=== PATIENT | female | born 1960 | race Caucasian/White ===

== ENCOUNTER 2018-08-01 00:39 | Outpatient (CLI) | payer OTHER, SELFPAY ==
--- NOTE | 2018-08-01 12:46 | DI.MAMMO_ITS ---
SYMPTOM/DIAGNOSIS: SCREENING, ANNUAL PHYSICAL EXAM, Z00.00 MAMMOGRAMS: Mammograms were interpreted according to the usual protocol including computer analysis with CAD system, tomosynthesis and C view imaging. The breasts are heterogeneously dense. No dominant mass or clumped microcalcification is identified in either breast. The current examination is compared with previous examinations including 08/2016 and there has been no gross interval change in appearance in comparison with the previous studies. CONCLUSION: No specific evidence of malignancy at this time. Routine screening examinations are suggested at yearly intervals due to the family history of breast carcinoma. Category 1. Breast density, category C. MQSA ASSESSMENT OF FINDINGS: Negative. Category 1. Patient will receive a letter notifying them of these results. Bi-RADS category C. The breasts are heterogeneously dense, which may obscure small masses.
== END 2018-08-01 00:59 ==
PROVIDERS: PCP Family Medicine; Visit Provider Family Medicine
DX: Z00.00 Encounter for general adult medical examination without abnormal findings (principal); Z12.31 Encounter for screening mammogram for malignant neoplasm of breast
CPT/HCPCS: 77063; 77067

== ENCOUNTER 2019-01-28 10:02 | Emergency (ER) | payer OTHER, SELFPAY ==
[2019-01-28 10:08] VITALS: BP 144/118; PULSE 104; RESP 20; TEMP 37; O2SAT 100
[2019-01-28 10:18] VITALS: BP 116/80; PULSE 91; RESP 18; O2SAT 99
--- NOTE | 2019-01-28 10:20 | W.ED.GENAD ---
Discharge Plan Disposition Patient Disposition: HOME Condition: Improving Discharge Details Chief Complaint: EyeProblem Clinical Impression: Conjunctivitis, Acute bronchitis Primary Care Provider: Prabha Dixon ED Provider: Walter Nagel Home Meds and New Rx's Prescriptions: New azithromycin 250 mg tablet See Rx Instructions .ROUTE .COMPLEX Qty: 6 RF: 0 Continued omeprazole 20 MG capsule,delayed release(DR/EC) 20 mg PO DAILY RF: 0 oxybutynin chloride 10 MG tablet extended release 24hr 15 mg PO DAILY RF: 0 Discharge Instructions Instructions: Acute Bronchitis (ED), Conjunctivitis (ED) Additional Instructions: Home to rest today. Erythromycin ophthalmic ointment 3 times daily for 5 days. No contacts while on this medication. Take azithromycin as prescribed. Small, frequent sips of fluids to maintain hydration. 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 She has had days of cough with production of green-tinged sputum and now left greater than right conjunctivitis with crusting of the lids and yellow discharge this morning. Most likely a developing acute bronchitis but with concomitant left conjunctivitis. Will treat with erythromycin ophthalmic and discussed with her systemic azithromycin to cover for atypical microorganisms. Stable and appropriate outpatient management. HPI General Mode of arrival: ambulatory. Date/Time Provider Initiated Documentation: 01/28/19 10:04. Limitations to Documentation: no limitations. Information obtained by: patient. History of Present Illness 58 year old F presents to the emergency department with the chief complaint of URI symptoms with left eye conjunctivitis, crusting of the lids, and is localized to the eyes and left. Patient started experiencing this day(s) and it has been constant. No relieving factors improve symptom(s), No exacerbating factors reported . Patient notes cough and other (Production of sputum). Related Data Home Medications Medication Instructions Recorded Confirmed omeprazole 20 mg PO DAILY 09/05/14 01/28/19 oxybutynin chloride 15 mg PO DAILY 10/28/15 01/28/19 azithromycin See Rx Instructions .ROUTE 01/28/19 .COMPLEX #6 tab Previous Rx's Medication Instructions Recorded azithromycin See Rx Instructions .ROUTE 01/28/19 .COMPLEX #6 tab Allergies Allergy/AdvReac Type Severity Reaction Status Date / Time No Known Allergies Allergy Unverified 01/28/19 10:12 General Stated Complaint: EyeProblem MAO: 5 Review of Systems Review of Systems Narrative: Cough with production of sputum. Works in the hospital. No other significant complaints. 4 systems reviewed and otherwise negative [facility] Social History Smoking/Tobacco Use Status: Never Drug use: Never Exam Narrative Exam Narrative: GEN: awake, alert, oriented 3. Pleasant, well groomed, interactive. HEAD: Normocephalic, atraumatic ENT: Mucous membranes moist, oropharynx unremarkable, External ear exam unremarkable EYES: PERRL, EOMI, left greater than right conjunctival and scleral injection. NECK: Full ROM, no PARIS, no menigismus CHEST/RESP: Nontender, clear to auscultation bilateral, no wheeze/rhonchi/rales CARDIOVASCULAR: RRR, no murmur, rub corie. 2+ Rad pulse bilateral ABDOMEN: Soft, nontender, no mass. +Bowel sounds EXT: Full ROM, no edema, no rash Neuro: Grossly normal neurologic exam, conversant, interactive. Psych: Speech fluent, thoughts congruent, affect normal Course Vital Signs Vital signs: Vital Signs Temperature 37.0 C 01/28/19 10:08 Pulse 104 H 01/28/19 10:08 Respiratory Rate 20 01/28/19 10:08 Blood Pressure 144/118 H 01/28/19 10:08 Pulse Oximetry 100 01/28/19 10:08 Temperature 37.0 C 01/28/19 10:08 Temperature Source Skin 01/28/19 10:08 Pulse 91 H 01/28/19 10:18 Respiratory Rate 18 01/28/19 10:18 Respiratory Effort 01/28/19 10:14 Blood Pressure 116/80 01/28/19 10:18 Pulse Oximetry 99 01/28/19 10:18 Oxygen Delivery Method Room Air 01/28/19 10:18 Oxygen Flow Rate 0 01/28/19 10:18 Pain Level 3 01/28/19 10:08
[2019-01-28] MEDS: Erythromycin Ophth Oint 3.5 GM TUBE OP (10:28)
[2019-01-28 10:55] VITALS: BP 116/80; PULSE 91; RESP 18; O2SAT 99
== END 2019-01-28 10:32 | disposition home or self-care (01) ==
PROVIDERS: Emergency Provider Emergency Medicine; PCP Family Medicine
DX: H10.33 Unspecified acute conjunctivitis, bilateral (principal); J20.9 Acute bronchitis, unspecified
CPT/HCPCS: 99283

== ENCOUNTER 2019-12-22 18:45 | Outpatient (REF) | payer OTHER, SELFPAY ==
[2019-12-28 11:53] LABS: Helicobacter pylori Ag, Feces Negative (Negative)
== END 2019-12-22 19:05 ==
LOC: LBN 18:45
PROVIDERS: PCP Family Medicine; Visit Provider Family Medicine
DX: K21.9 Gastro-esophageal reflux disease without esophagitis (principal)
CPT/HCPCS: 87338

== ENCOUNTER 2020-05-31 06:04 | Day surgery (SDC) | payer OTHER, SELFPAY ==
[2020-05-30 13:16] LABS: COVID-19 RT-PCR UVMMC Result Negative (Negative)
[2020-05-31 06:15] VITALS: BP 110/70; PULSE 83; RESP 18; TEMP 36.6; O2SAT 100
[2020-05-31] MEDS: Lactated Ringers 1,000 ML 80 ML IV (06:45)
--- NOTE | 2020-05-31 07:21 | HPE_ITS ---
Date of service: 05/31/20 Time of Service: 07:21 History of Present Illness History of Present Illness Chief Complaint: Symptomatic fifth digit hammertoe deformities bilaterally [facility] Medical History GERD (gastroesophageal reflux disease) Overactive bladder Surgical History History of bladder suspension procedure History of lumpectomy of left breast Social History Smoking/Tobacco Use Status: Never Smoking risk assessment performed?: Yes Alcohol Intake: current Alcohol Intake frequency: holidays/special occasions only Drug use: Never Substance use type: does not use Do you feel safe at home: Yes Do you feel safe in your relationship?: Yes Meds Home Medications and Allergies Home Medications Medication Instructions Recorded Confirmed Type omeprazole 20 mg PO DAILY 09/05/14 05/31/20 History oxybutynin chloride 15 mg PO DAILY 10/28/15 05/31/20 History azithromycin See Rx Instructions .ROUTE 01/28/19 05/29/20 Rx .COMPLEX #6 tab Tumeric 500 mg PO DAILY 05/30/20 History Zinc Complex 05/30/20 History calcium-vitamin D3-vitamin K 2 tab PO DAILY 05/30/20 05/31/20 History [Viactiv] cholecalciferol (vitamin D3) 125 mcg PO DAILY 05/30/20 05/31/20 History [Vitamin D3] cyanocobalamin (vitamin B-12) 2,500 mcg PO DAILY 05/30/20 05/31/20 History [Vitamin B-12] elderberry fruit-honey 10 ml PO DAILY 05/30/20 05/31/20 History lysine [L-Lysine] 100 mg PO DAILY 05/30/20 05/31/20 History magnesium 500 mg PO DAILY 05/30/20 05/31/20 History multivitamin 1 tab PO DAILY 05/30/20 05/31/20 History Allergies Allergy/AdvReac Type Severity Reaction Status Date / Time No Known Allergies Allergy Unverified 05/31/20 05:57 Exam Narrative Exam Narrative: 59-year-old female with longstanding and progressive pain associated with fifth digit hammertoe deformities. The left fifth toe has been more problematic than the right but both are causing difficulty wearing shoes getting through her usual workday and daily activities without pain. Nonsurgical treatments have failed to provide sufficient relief of symptoms. She is seeking surgical repair. Physical exam head normocephalic Eyes PERRLA Hearing is adequate Heart had regular rate and rhythm without gallops rubs or murmurs Lung brown are clear Abdomen is soft and nontender bowel sounds x4 Peripheral pulses are palpable at the ankles 2 out of 4 bilaterally Muscle groups are 5 out of 5 bilaterally Skeletal exam is remarkable for contractures of the fifth digits where corn form ations are noted over the dorsal lateral aspect of the fifth PIPJ. The lesions and joint regions are very sensitive to direct palpation. Digiti quinti varus deformities are appreciated. The remaining forefoot exam is otherwise grossly benign Neurologically she is grossly intact. Toes are downgoing. There are no focal deficits. Impressions: Fifth digit hammertoe deformities bilaterally symptomatic Plan: Has been brought to the OR for surgical repair fifth digits bilaterally. She understands risk and complications pertaining to pain, scarring, infection, swelling, persistent or recurrent corn and/or hammertoe deformity potentially requiring revisional procedure. All questions have been answered in detail. No promises made to the final outcome of surgery. Informed consent has been obtained. Results Labs Labs: Laboratory Results - last 24 hr 05/29/20 12:47 SARS-CoV-2 (PCR) Negative Nasopharyn COVID-19 PCR Not Applicable Ref Test Perform Site [facility] Last Vital Signs Temp 36.6 C 05/31/20 06:15 Pulse 83 05/31/20 06:15 Resp 18 05/31/20 06:15 BP 110/70 05/31/20 06:15 Pulse Ox 100 05/31/20 06:15 COVID-19 Screening Have you, or household traveled for leisure in last 14 days?: No Had IN PERSON contact w/suspected or confirmed C-19 person: No
[2020-05-31] MEDS: ceFAZolin 1 GM/50 ML BAG IVPB (07:36)
--- NOTE | 2020-05-31 08:15 | BONE_PTH ---
PATIENT: Maria Teresa Atkins LOC: [facility] U#:[id number] AGE/SX: 59/F ROOM: RE05/31/[address]: Yao Cochran : 1960 BED: DIS: 05/31/2020 SPEC #: [id number] RECD: 05/31/20 12:22 STATUS: GAB REMichael #: [id number] DANICA: 05/31/20 08:[address]: Yao Cochran DEPT: Surgical Specimen RECD BY: Jocelyn Cox ENTERED: 05/31/20 12:22 SP TYPE: Bone OTHR DR: Prabha Dixon Tissues: 1 - BONE BX/CURRETTE NOT PATH FRACTURE Procedures: GROSS AND MICRO LEVEL 4 Comments: [id number] (SUBMITTED IN 100% ETHANOL)
--- NOTE | 2020-05-31 08:42 | W.PM.DSUDISC ---
Discharge Plan Disposition Patient Disposition: HOME Condition: Good Discharge Details Reason For Visit: Correction hammertoe deformities fifth digits jim Attending Provider: Yao Cochran Primary Care Provider: Prabha Dixon Trail Meds and New Rx's Prescriptions: New ibuprofen 600 mg tablet 600 mg PO Q6H PRN (Reason: pain) Qty: 60 RF: 1 hydrocodone-acetaminophen [[place]] 5-325 mg tablet 1 tab PO Q6H PRN (Reason: pain (scale score 7-10)) Qty: 9 RF: 0 Continued omeprazole 20 MG capsule,delayed release(DR/EC) 20 mg PO DAILY RF: 0 oxybutynin chloride 10 MG tablet extended release 24hr 15 mg PO DAILY RF: 0 azithromycin 250 mg tablet See Rx Instructions .ROUTE .COMPLEX Qty: 6 RF: 0 multivitamin Tablet 1 tab PO DAILY RF: 0 magnesium 500 mg Tablet 500 mg PO DAILY RF: 0 cyanocobalamin (vitamin B-12) [Vitamin B-12] 1,000 mcg Tablet 2,500 mcg PO DAILY RF: 0 lysine [L-Lysine] 500 mg Tablet 100 mg PO DAILY RF: 0 calcium-vitamin D3-vitamin K 500-100-40 mg-unit-mcg Tablet,Chewable 2 tab PO DAILY RF: 0 cholecalciferol (vitamin D3) [Vitamin D3] 125 mcg (5,000 unit) Tablet 125 mcg PO DAILY RF: 0 elderberry fruit-honey 0.7-3 gram/7.5 mL Liquid 10 ml PO DAILY RF: 0 Tumeric 500 mg 500 mg PO DAILY RF: 0 Zinc Complex RF: 0 Discharge Instructions Stand Alone Forms: Sammie'reji Instructions-DSU, Kelli Palacios (DSU) Activity:: Elevate Remove Dressings/Wound Care:: Do Not Remove Shower/Bathe:: Cover Diet:: Normal Diet Discharge Orders Discharge Orders: Discharge Order (Routine); Ordered 05/31/20 Ordered By: Yao Cochran DS: Diagnosis Discharge Diagnosis (1) Hammertoe of left foot: Status: Acute
--- NOTE | 2020-05-31 08:46 | ROE_ITS ---
Date of service: 05/31/20 Time of Service: 08:46 Operative Note Operative Note DATE OF PROCEDURE: 05/31/20 PRE-OP DIAGNOSIS: Hammertoe deformities fifth digit bilaterally POST-OP DIAGNOSIS: same PROCEDURE: Arthroplasty fifth digit bilaterally SURGEON: Yao Cochran ANESTHESIA: RYAN ESTIMATED BLOOD LOSS: 1 PATHOLOGY: other TOURNIQUET TIME: 21 COMPLICATIONS: None Patient was transported to: same day Indications: 59-year-old female with increasing pain associated with hammertoe deformities fifth digit bilaterally with the right digit being much more painful than the left. Pain is interfering with shoe gear weightbearing and ambulation. She has reached the point that she is seeking surgical relief. She understands potential risk and complications of surgery pertaining to pain, scarring, infection, recurrence of deformity potentially requiring revisional procedures. All questions have been answered. Informed consents been obtained. Findings: Right fifth toe upon opening the skin a white milky fluid was noted this was cultured. Additionally some white crystalline deposition was appreciated within the tendon and bone structure. This was also sent to pathology. Procedure Description: Maria Teresa was brought to the operative suite placed in the supine position with both feet were prepped and draped in the usual sterile podiatric fashion. Timeout was performed. Anesthesia was accomplished through IV general and local block of the fifth digits bilaterally. Each toe was anesthetized with 5 cc of a 50: 50 mixture 1% lidocaine plain, 0.5% Marcaine plain. Attention was directed to the left foot. The left foot was exsanguinated by a #bandage. Attention was directed to the fifth toe where a midline incision dorsally was placed over the PIPJ the skin incision was deepened and dissection carried down to the extensor tendon. The tendon was transected transversely at the PIPJ with a #15 scalpel and the medial lateral collateral was released. The head of the proximal phalanx was delivered into the wound. Mild to moderate degenerative changes of the articular surface noted. With double-action bone cutting forceps the proximal phalangeal head was resected. All rough and bony edges were rasped smooth. Good correction of deformity was appreciated. The wound was copiously irrigated. The extensor tendon was repaired with simple interrupted suture 3-0 Vicryl. Skin was coapted with simple interrupted suture of 4-0 nylon. 2 mg of dexamethasone phosphate was infused into the left fifth toe proximally. Xeroform gauze fluff compression dressings were applied. The Esmarch bandage was removed vascularity returned immediately to all toes. Attention was now directed to the right foot. Right foot was exsanguinated well-padded ankle tourniquet inflated to 250 mmHg. A midline incision was placed over the PIPJ approximately a centimeter in length and upon slightly deepening a white thin milky fluid daily copious in nature was identified no alejandra purulence was appreciated the fluid was cultured for aerobic and anaerobic specimens. Further dissection carried down to the tendon also revealed what appeared to be some crystalline type activity within the tendon itself which was moderately edematous a transverse tenotomy at the PIPJ level wa s performed the bone also appeared to have some white crystalline deposition the medial lateral collaterals at the PIPJ level were released and the head of the proximal phalanx delivered into the wound the head was resected at its surgical neck with all rough and bony edges being rasped smooth copious irrigation was performed. The extensor tendon was repaired with simple interrupted suture 3-0 Vicryl. The skin was coapted with simple interrupted suture of 4-0 nylon. Xeroform was applied followed by 2 milligrams of dexamethasone phosphate. Gauze fluff compression dressings were applied. Tourniquet was released at 21 minutes. Vascularity returned immediately to all toes. Maria Teresa left the OR vital signs stable vascular status intact she will be followed by myself in the office next week.
[2020-05-31 09:10] VITALS: BP 108/66; PULSE 69; RESP 16; TEMP 36; O2SAT 100
== END 2020-05-31 09:27 | disposition home or self-care (01) ==
PROVIDERS: PCP Family Medicine; Visit Provider Podiatrist
PROC: (CPT 28285; principal; 2020-05-31 07:30)
DX: M20.42 Other hammer toe(s) (acquired), left foot (principal); E83.59 Other disorders of calcium metabolism; K21.9 Gastro-esophageal reflux disease without esophagitis; Z20.822 Contact with and (suspected) exposure to COVID-19
CPT/HCPCS: 28285; 88305; 99354; U0003; 87070; 87075; 87205; 88304; J0690; J1885; J2001; J2405; J2704

== ENCOUNTER 2020-11-13 08:38 | Outpatient (REF) | payer OTHER, SELFPAY ==
[2020-11-13 17:03] LABS: Bacteria Packed HPF (Negative); C & S Indicated? C&S Done As Ordered; WBC >50 HPF (0-5)
== END 2020-11-13 08:39 | disposition home or self-care (01) ==
LOC: LBN 08:38
PROVIDERS: PCP Family Medicine; Visit Provider Family Medicine
DX: N39.0 Urinary tract infection, site not specified (principal)
CPT/HCPCS: 87077; 81015; 87086; 87186

== ENCOUNTER 2022-10-22 06:02 | Day surgery (SDC) | payer BC, SELFPAY ==
--- NOTE | 2022-10-21 20:49 | PDOC.DSDIS_ITS ---
Date of service: 10/22/22 Time of Service: 08:16 Discharge Plan Disposition Patient Disposition: Home Condition: Good Discharge Details Reason For Visit: EGD and screening colonoscopy Attending Provider: Kash Spence Primary Care Provider: Prabha Dixon Home Meds and New Rx's Prescriptions: Continued omeprazole 40 mg capsule,delayed release(DR/EC) 40 mg PO DAILY oxybutynin chloride 10 mg tablet extended release 24hr 10 mg PO DAILY multivitamin Tablet 1 tab PO DAILY magnesium 500 mg Tablet 500 mg PO DAILY cyanocobalamin (vitamin B-12) [Vitamin B-12] 1,000 mcg Tablet 2,500 mcg PO DAILY calcium-vitamin D3-vitamin K 500-100-40 mg-unit-mcg Tablet,Chewable 2 tab PO DAILY cholecalciferol (vitamin D3) [Vitamin D3] 125 mcg (5,000 unit) Tablet 125 mcg PO DAILY Tumeric 500 mg 500 mg PO DAILY Zinc Complex 100 mg PO ibuprofen 600 mg tablet 600 mg PO Q6H PRN (Reason: pain) Qty: 60 1RF lysine [L-Lysine] 500 mg tablet 100 mg PO DAILY PRN Discharge Instructions Instructions: Hiatal Hernia (GEN), Laparoscopic Hiatal Hernia Repair (GEN) Additional Instructions: Maria Teresa, we were able to complete your upper and your lower endoscopies today without any difficulty. Your upper endoscopy was very reassuring. I did not see any evidence of narrowing of the esophagus. Therefore, I did not perform any dilation. There is a small angulated turn at the bottom of the esophagus where it connects to the stomach. It appears to me to be a sliding hiatal hernia. The angulation is created by the diaphragm muscle around the esophagus as the gastroesophageal junction moves [id number] across it. I do not think that this can be fixed with dilation. In and of itself it is not dangerous, but it certainly can cause symptoms like what you have described. There is an operation to fix this, but I do not perform it. I be more than happy to refer you to another surgeon at [facility] [place] for their opinion. In the meantime, I would also like to get a swallow study to help better define the course of your esophagus and the anatomy around the opening of the diaphragm. Colonoscopy was totally negative. There were no polyps tumors or anything else out of the ordinary. You should consider another colonoscopy in 10 years to help reduce your chances of dying from colon cancer over the course of your life. 1. If tolerated, consume a soft, low fiber diet for 1-2 days. 2[address] Do not drive, drink alcohol, operate machinery, make critical decisions, or do activities that require coordination or balance for 24 hours. 3. Because air was put into your colon during the procedure, expelling air from your rectum (passing gas or farting) is normal. 4. You may not have a bowel movement for 1-3 days because of the colonoscopy prep. This is normal. 5. You may experience a sore throat for 24 to 48 hours. You may use throat lozenges or gargle with warm salt water to relieve the discomfort. 6. Because air was put into your stomach during the procedure, you may experience some belching. 7. Go directly to the emergency room if you notice any of the following: Develop chills (warm to touch), or if you have a thermometer and your temperature is above 101 Difficulty breathing or difficultly swallowing Persistent vomiting Severe abdominal pain, other than gas cramps Severe chest pain Black, tarry stools Any bleeding ? exceeding one tablespoon 8. Call your physician if the site where your intravenous was started becomes red, swollen, painful, and warm to touch. 9. Your physician has reviewed your pre-procedure medications. Please continue to take those medications as previously ordered. You will be given specific information/education regarding any changes to your medications before leaving. Activity:: Activity as Tolerated Diet:: As Tolerated Discharge Orders Discharge Orders: Discharge Order (Routine); Ordered 10/21/22 Ordered By: Kash Spence
--- NOTE | 2022-10-21 20:51 | W.PM.ENDDOP ---
Date of service: 10/22/22 Time of Service: 08:25 Endoscopy Report DATE OF PROCEDURE: 10/22/22 PRE-OP DIAGNOSIS: dysphagia and screening colonoscopy POST-OP DIAGNOSIS: other (Hiatal hernia) PROCEDURE: EGD and colonoscopy SURGEON: Kash Spence ANESTHESIA TYPE: General:No Airway ESTIMATED BLOOD LOSS: 0 PATHOLOGY: none sent COMPLICATIONS: None DISPOSITION: same day INDICATIONS: Maria Teresa is 62 years old. She has a history of esophageal stricture requiring dilation. She has been experiencing dysphgia similar to previous stricture symptoms. She is also due for another screening colonoscopy. PREP: Miralax/Dulcolax PROCEDURE START TIME: 07:33 PROCEDURE END TIME: 08:00 COLONOSCOPY RETRACTION TIME: 12 FINDINGS: GE junction at 38 cm. Angulation of distal esophagus against diaphragm hiatus. Normal screening colonoscopy. PROCEDURE DESCRIPTION: After the initiation of monitored anesthetic care, and with the assistance of a bite block, I advanced a standard gastroscope through the mouth past the hypopharynx and into the esophagus.? Under the direct vision of the scope, I advanced down the esophagus into the stomach.? At the distal esophagus, there is an angulation proximal to the GE junction. With caution unable to navigate the endoscope around this without much difficulty. There does not appear to be any stricturing. Once I entered the stomach, I performed a brief inspection, followed by retroflexion towards the gastric cardia.? There appears to be a sliding hiatal hernia, at the GE junction proper being above the diaphragmatic hiatus. After that, I gently advanced the scope around the incisura angularis and examined the pylorus.? This also appeared normal.? Next, I advanced the scope through the pylorus into the duodenum.? The mucosa was pink and healthy appearing.? There were no abnormalities.? I was able to visualize bile draining into the duodenum through the ampulla Vater. ?Next, I began retracting the endoscope.? I then gently desufflated some of the stomach, and withdrew the endoscope into the distal esophagus. The GE junction is located approximately 38 cm from the incisors. Again, as the endoscope is manipulated, the GE junction slides above and below the hiatus. ?Finally, I withdrew the scope along the length of the esophagus taking great care to examine the entirety of the mucosa. Aside from the previously mentioned angulation created along the distal esophagus, the midportion and upper esophagus appeared normal without signs of stricturing. Next, we gently positioned Maria Teresa in the left lateral decubitus position. I began by performing an external anorectal exam.? Perineum and skin were normal, as was the anal verge.? There was no evidence of external hemorrhoids.? Next, I performed a digital rectal exam.? I did not appreciate any abnormal findings.? Next, I advanced a colonoscope into the rectal vault.? I performed retroflexion.? This was normal.? Using insufflation, I then advanced the colonoscope beyond the rectal folds and into the sigmoid colon before advancing towards the cecum.? The quality of the prep was excellent.? The scope was noted to be in the cecum by identification of the ileocecal valve and appendiceal orifice.? I then began withdrawing the colonoscope using repeated irrigation as necessary for full evaluation of the colonic mucosa. ?Once the scope was withdrawn to the level of the rectum, great care was taken to examine portions of the rectal folds.? Finally, the scope was withdrawn and the patient was brought to the same-day surgery recovery unit as the anesthetic wore off. ?The findings and instructions were shared with the patient prior to discharge.
[2022-10-22 06:17] VITALS: BP 115/75; PULSE 82; RESP 16; TEMP 36.5; O2SAT 98
[2022-10-22] MEDS: Lactated Ringers 1,000 ML 80 ML IV (06:37)
--- NOTE | 2022-10-22 06:56 | W.ANESPRE ---
General Info Date of Service Date Performed: 10/22/22 Height: 5 ft 6 in Weight: 73.1 kg Body Mass Index (BMI): 25.9 Surgical Procedure: Operation Date: 10/22/22 07:35 Proposed Procedure Side Surgeon p Colonoscopy/Gastroscopy with possible dilation Kash Spence MD Actual Procedure Side Surgeon p Colonoscopy/Gastroscopy with possible dilation Not Applicable Kash Spence MD Pre-Op Diagnosis Post-Op Diagnosis Dysphagia and screening colonoscopy Meds Allergies and Home Medications Allergies Allergy/AdvReac Type Severity Reaction Status Date / Time No Known Allergies Allergy Verified 10/22/22 06:23 Home Medication Medication Instructions Recorded Tumeric 500 mg PO DAILY 05/30/20 Zinc Complex 100 mg PO 05/30/20 calcium-vitamin D3-vitamin K 500 2 tab PO DAILY 05/30/20 mg-100 unit-40 mcg chewable tablet cholecalciferol (vitamin D3) 125 125 mcg PO DAILY 05/30/20 mcg (5,000 unit) tablet (Vitamin D3) cyanocobalamin (vitamin B-12) 2,500 mcg PO DAILY 05/30/20 1,000 mcg tablet (Vitamin B-12) magnesium 500 mg tablet 500 mg PO DAILY 05/30/20 multivitamin 1 tab PO DAILY 05/30/20 ibuprofen 600 mg tablet 600 mg PO Q6H PRN pain #60 tabs 05/31/20 omeprazole 40 mg capsule,delayed 40 mg PO DAILY 12/12/21 release oxybutynin chloride 10 mg 10 mg PO DAILY 12/12/21 tablet,extended release 24 hr lysine 500 mg tablet (L-Lysine) 100 mg PO DAILY PRN 10/07/22 Current Visit Medications: Current Medications Generic Name Dose Route Start Last Admin Trade Name Freq PRN Reason Stop Dose Admin Hyoscyamine Sulfate 0.125 mg 10/21/22 20:53 Hyoscyamine 0.125 Mg Sl/Oral/Chew SL 11/20/22 20:52 DIRECTED PRN Ringer's Solution 1,000 mls @ 80 mls/hr 10/22/22 06:00 10/22/22 06:37 IV 10/30/22 23:59 80 mls/hr INFUSION JASON Administration IV Miscellaneous Supplies 1 each 10/22/22 06:00 Iv Access IV 10/30/22 23:59 DIRECTED JASON Ondansetron HCl 4 mg 10/21/22 20:53 Ondansetron 4 Mg/2 Ml Vial IVP 11/20/22 20:52 Q4H PRN PRN Nausea / Vomiting Sodium Chloride 0 ml 10/22/22 06:00 Normal Saline Flush 10 Ml Syr IV 10/30/22 23:59 PRN PRN Sodium Chloride 0 ml 10/22/22 06:00 Normal Saline 10 Ml Vial IJ 10/30/22 23:59 DIRECTED PRN Sterile Water 0 ml 10/22/22 06:00 Water,Injection,Sterile 10 Ml Vial IJ 10/30/22 23:59 DIRECTED PRN PFSH Active Problems Active Problems: Problem Status Onset Code Encounter for screening for other viral diseases Z11.59 Hammertoe of left foot M20.42 Medical History Medical History GERD (gastroesophageal reflux disease) Overactive bladder Surgical History Surgical History History of bladder suspension procedure History of colonoscopy History of esophagogastroduodenoscopy (EGD) w/ dilation x3 History of lumpectomy of left breast Tobacco Smoking/Tobacco Use Status: Never Alcohol Alcohol Intake: current Alcohol intake frequency: holidays/special occasions only Substance Use Substance use: Never Substance use type: does not use Vital Signs and Lab Results Vital Signs Most Recent Vital Signs in EMR: Most Recent Vital Signs Temp Pulse Resp BP Pulse Ox 36.5 C 82 16 115/75 98 10/22/22 06:17 10/22/22 06:17 10/22/22 06:17 10/22/22 06:17 10/22/22 06:17 Lab Results Blood Type / Crossmatch: No Data to Display Complete Blood Count: No Data to Display Complete Metabolic Panel: No Data to Display Liver Function Panel: No Data to Display Coagulation Panel: No Data to Display Cardiac Panel: No Data to Display Arterial Blood Gas: No Data to Display Venous Blood Gas: No Data to Display Pancreas Panel: No Data to Display Thyroid Panel: No Data to Display Infectious Disease: No Data to Display Blood Cultures: No Data to Display Toxicology Panel: No Data to Display Anesthesia Assessment and Plan Anesthesia History Personal History: No History of Anesthesia Complications Family History: No Family History of Anesthesia Complications Exercise Tolerance Exercise Tolerance: Metabolic Equivalents>4 Pertinent Negatives Pertinent Negatives: No Symptoms of GERD, No Major Cardiovascular Symptoms or Complaints, No Major Pulmonary Symptoms or Complaints and No History of CVA/TIA Cardiac & Pulmonary Exam Cardiac Exam: Normal S1/S2 Heart Sounds Pulmonary Exam: Clear Bilateral Breath Sounds Implantable Cardiac Device Does patient have a Pacemaker or an ICD?: No Airway Exam Known Difficult Airway: No Mallampati Class: 2 Mouth Opening: Normal (> 3cm) Thyromental Distance: Greater than 3 cm Neck Range of Motion: Full ROM Neck Circumference: Normal Teeth Condition: Normal Dentition ASA Classification ASA Score: ASA 2 Emergency Case?: No NPO Status NPO Status: NPO Clears >2 hours, Solids >8 hours Anesthesia Plan Resuscitation Status: Full Code Anesthesia Technique: General Anesthesia Airway Planned: Natural Airway Monitors Used: Standard Monitors
[2022-10-22 07:00] VITALS: BMI 25.9
[2022-10-22 08:05] VITALS: BP 95/62; PULSE 74; RESP 15; TEMP 36.4; O2SAT 98
--- NOTE | 2022-10-22 08:24 | W.ANESPOSTOP ---
Postoperative Evaluation Date, Time and Location Date Performed: 10/22/22 Time Performed: 08:25 Patient Location: Day Surgery Unit Vital Signs Most Recent Imported Vital Signs: Most Recent Vital Signs Temp Pulse Resp BP Pulse Ox 36.5 C 82 16 115/75 98 10/22/22 06:17 10/22/22 06:17 10/22/22 06:17 10/22/22 06:17 10/22/22 06:17 Pain Score Most Recent Pain Score: Most Recent Pain Score Pain Level 0 10/22/22 06:17 Assessment Mental Status: Awake (Alert & Oriented to Patient Baseline) Airway and Respiratory Function: Patent airway with normal (patient baseline) respiratory exam Cardiovascular Function: Hemodynamically Stable Hydration Status: Adequately Hydrated Nausea & Vomiting: No Nausea or Vomiting Pain: Pt. Denies Any Pain Peripheral Nerve Block: Patient did not receive a nerve block
[2022-10-22 08:35] VITALS: BP 108/71; PULSE 71; RESP 16; TEMP 36.7; O2SAT 100
== END 2022-10-22 09:00 | disposition home or self-care (01) ==
PROVIDERS: PCP Family Medicine; Visit Provider Surgery
PROC: (CPT 45378; principal; 2022-10-22 07:30)
DX: R13.10 Dysphagia, unspecified (principal); Z12.11 Encounter for screening for malignant neoplasm of colon; K44.9 Diaphragmatic hernia without obstruction or gangrene
CPT/HCPCS: 45378; 43235; J2001; J2405